=== PATIENT | male | born 1950 | race Caucasian/White ===

== ENCOUNTER 2020-08-17 06:14 | Day surgery (SDC) | payer MEDICARE ==
[2020-08-16 13:33] LABS: BASOPHILS % (AUTO) 0.4 % (0-1); EOSINOPHILS # (AUTO) 0.1 X10'3 (0-0.9); EOSINOPHILS % (AUTO) 1.9 % (0-6); HEMATOCRIT 44.2 % (42.0-52.0); HEMOGLOBIN 14.7 g/dl (14.0-17.9); LYMPHOCYTES # (AUTO) 1.5 X10'3 (1.1-4.8); LYMPHOCYTES % (AUTO) 26.3 % (21-51); MEAN CORPUSCULAR HGB CONC 33.3 g/dL (33.0-36.5); MEAN CORPUSCULAR VOLUME 84.1 FL (78-98); MEAN PLATELET VOLUME 8.1 FL (7.4-10.4); MONOCYTES # (AUTO) 0.5 X10'3 (0-0.9); MONOCYTES % (AUTO) 8.5 % (2-12); NEUTROPHILS # (AUTO) 3.5 X10'3 (1.8-7.7); NEUTROPHILS % (AUTO) 62.9 % (42-75); PLATELET COUNT 230 X10'3 (140-440); RED BLOOD COUNT 5.26 X10'6 (4.70-6.10); RED CELL DISTRIBUTION WIDTH 13.2 % (11.5-14.5); WHITE BLOOD COUNT 5.5 X10'3 (4.5-11.0)
[2020-08-16 13:40] LABS: CHLORIDE 104 MMOL/L (99-107); POTASSIUM 4.2 MMOL/L (3.5-5.1); SODIUM 140 MMOL/L (135-145)
[2020-08-16 13:46] LABS: PARTIAL THROMBOPLASTIN TIME 29 SECONDS (22-32)
[2020-08-16 13:47] LABS: ALBUMIN 3.7 G/DL (3.4-5.0); BLOOD UREA NITROGEN 18 MG/DL (7-18); BUN/CREATININE RATIO 18.4 (5.4-32.0); CALCIUM 8.7 MG/DL (8.5-10.1); CREATININE 0.98 MG/DL (0.60-1.10); GLUCOSE 258 MG/DL (70-104); TOTAL CARBON DIOXIDE 26.2 MMOL/L (24-32); eGFR 75 ML/MIN
[2020-08-16 13:50] LABS: ANION GAP 10 (8-16)
[~2020-08-17] VITALS: Ht 188 cm; Wt 105.5 kg
[2020-08-17] VITALS (11 sets, daily range): BP systolic 117–153; BP diastolic 59–84
[2020-08-17] MEDS ORDERED: normal saline 1000ml 1,000 ML IV SCH (06:25)
[2020-08-17] MEDS ORDERED: ceFAZolin/D5W- 1GM premix 50 ML IV ONE (06:25)
[2020-08-17] MEDS ORDERED: ceFAZolin 2gm in dextrose, iso 50 ML IV ONE ×2 (06:30→08:00)
[2020-08-17] MEDS ORDERED: VIT1TABL83 PO (06:54)
[2020-08-17] MEDS ORDERED: METF-438 PO (06:54)
[2020-08-17] MEDS ORDERED: MULT-1085 PO (06:54)
[2020-08-17] MEDS ORDERED: LISI1TAB51 PO (06:54)
[2020-08-17] MEDS ORDERED: ATOR40TA72 PO (06:54)
[2020-08-17] MEDS ORDERED: FLO0.4C PO (06:54)
[2020-08-17] MEDS ORDERED: GLIM2TAB6 PO (06:54)
[2020-08-17] MEDS ORDERED: APIX5TAB3 PO (06:54)
[2020-08-17] MEDS ORDERED: KRIL1CAP PO (06:54)
[2020-08-17] MEDS ORDERED: fentaNYL/PF 50MCG/1 ML 2ML syringe ONE ×2 (07:23→08:59)
[2020-08-17] MEDS ORDERED: midazolam 2 mg/2 ml injection ONE ×2 (07:23→08:58)
[2020-08-17] MEDS ORDERED: LIDOcaine 1% W/epiNEPHrine 1:100,000 20ml vial ONE (07:24)
[2020-08-17] MEDS ORDERED: ceFAZolin 1000mg inj ONE (07:24)
--- NOTE | 2020-08-17 07:55 | NUR ---
Pt left floor for procedure.
[2020-08-17] MEDS ORDERED: HYDROcodone/acetaminophen 10/325mg tab PO PRN (09:55)
[2020-08-17] MEDS ORDERED: HYDROcodone/acetaminophen 5mg/325mg tablet PO PRN (09:55)
--- NOTE | 2020-08-17 10:14 | NUR ---
pt back from procedure, pain medication administered as ordered. pt requesting ice pack. pt ate 100% of lunch tray and 250ml oral liquid taken in.
--- NOTE | 2020-08-17 10:20 | NUR ---
Ice pack placed on left anterior upper shoulder. Will continue to monitor.
[2020-08-17] MEDS ORDERED: vancomycin/NS 1 GM ADD-VANTAGE 250 ML X 1 DOSE IV ONE (11:00)
--- NOTE | 2020-08-17 12:52 | NUR ---
Pt resting comfortably in bed, eyes closed, even respirations. will continue to monitor
== END 2020-08-17 14:55 | disposition home or self-care (01) ==
LOC: SSTAY O 06:14
PROVIDERS: ATTEND Internal Medicine Cardiovascular Disease
DX: I49.5 Sick sinus syndrome (principal); I10 Essential (primary) hypertension; E78.5 Hyperlipidemia, unspecified; E11.9 Type 2 diabetes mellitus without complications; I48.0 Paroxysmal atrial fibrillation
CPT/HCPCS: 33208; 33286; 36415; 71046; 80048; 82948; 85025; 85610; 85730; 93005; C1785; C1894; C1898; J0690; J2250; J3010; J3370; J7030; 99152; 99153; A6258

== ENCOUNTER 2022-11-27 10:50 | Outpatient (CLI) | payer MEDICARE, OTHER ==
[~2022-11-27 10:50] MED LIST: APIX5TAB3 PO; ATOR40TA72 PO; FLO0.4C PO; GLIM2TAB6 PO; KRIL1CAP PO; LISI1TAB51 PO; METF-438 PO; MULT-1085 PO; VIT1TABL83 PO
== END 2022-11-27 23:59 | disposition home or self-care (01) ==
LOC: CARD DIAG 10:50
PROVIDERS: ATTEND Internal Medicine Cardiovascular Disease
DX: I08.1 Rheumatic disorders of both mitral and tricuspid valves (principal)
CPT/HCPCS: 93306